=== PATIENT | male | born 1970 | race African-American/Black ===

== ENCOUNTER 2016-10-30 19:45 | Emergency (ER) | payer OTHER ==
[~2016-10-30] VITALS: Ht 188 cm; Wt 204.1 kg
[~2016-10-30 19:45] MED LIST: CIPROFLOXACIN500 M2 ORAL; IBUPROFEN600 MG ORAL; NKM; NORCO 10/3251 EA ORAL
--- NOTE | 2016-10-30 20:25 | Emergency Room Report ---
History of Present Illness General Chief Complaint: Animal Bite Source: Patient Present Illness HPI The patient presents with swelling in pain in the back of his neck. He said comes in his scalp in the past but never anything been like this before. It has been worsening over the last several days. Pain is 5/10, constant and worse with palpation, not radiating. Denies any fevers or chills. Last tetanus was 2 years ago. No URI sy, chest pain, dyspnea, NVD. Allergies: Coded Allergies: No Known Allergies (Unverified , 09/23/13) Patient History Past Medical History: see triage record, HTN Pertinent Family History: other - Mom worked here 29 years Social History: Denies: smoking Social History Narrative at home - disabled Reviewed Nursing Documentation: PMH: Agreed, PSxH: Agreed Nursing Documentation-PMH Hx Cardiac Problems: No - Bilateral Cornea transplant Hx Neurological Problems: No - KIDNEY STONES Review of Systems All Other Systems: negative except mentioned in HPI Physical Exam Vital Signs Date Time Temp Pulse Resp B/P Pulse Ox O2 Delivery O2 Flow Rate FiO2 10/30/16 20:05 99.1 98 16 151/100 100 Room Air Sp02 EP Interpretation: reviewed, normal General Appearance: well appearing, no apparent distress, obese Head: normocephalic, atraumatic Eyes: bilateral eye PERRL, bilateral eye normal inspection ENT: hearing grossly normal, normal voice, moist mucus membranes Neck: full range of motion, supple, tender - mid upper neck with swelling Respiratory: no respiratory distress, speaking full sentences Cardiovascular #1: regular rate, rhythm Cardiovascular #2: 2+ radial (L) Gastrointestinal: overweight Musculoskeletal: back normal, digits/nails normal, normal range of motion Neurologic: alert, oriented x3, normal gait, grossly normal Psychiatric: mood/affect normal Skin: other - abscess base of head - folliculitis around area, no erythema Procedures Incision and Drainage Incision and Drainage : Consent: Verbal Blade Size: 11 I & D Procedure: betadine prep, sterile drapes applied, sterile dressing applied, gauze wick placed Wound Location: neck Wound's Depth, Shape: other - deep subcutaneous tissue Wound Explored: contaminated - pus obtained - significant amount Irrigated w/ Saline (ccs): 20 Anesthesia: 1% Lidocaine Volume Anesthetic (ccs): 3 Patient Tolerated: Well Complications: None Medical Decision Making Diagnostic Impression: Primary Impression: Neck abscess ER Course Patient presents with a neck abscess. This needs to have I and D and also antibiotics. Tolerated I and D well. Discussed need for drain removal and further care and recheck. Patient stable for outpatient observation and treatment Chest X-Ray Diagnostic Results Chest X-Ray Ordered: No Last Vital Signs Date Time Temp Pulse Resp B/P Pulse Ox O2 Delivery O2 Flow Rate FiO2 10/30/16 21:23 99.1 16 151/100 100 Room Air 10/30/16 20:05 98 Status: improved Disposition: HOME, SELF-CARE Condition: Improved Scripts Tramadol Hcl* (ULTRAM*) 50 Mg Tablet 50 MG ORAL Q6H Y for For Pain, #10 TAB 0 Refills Prov: Jaskaran Hughes M.D. 10/30/16 Ibuprofen* (MOTRIN*) 600 Mg Tablet 600 MG ORAL Q6H Y for For Pain, #16 TAB Prov: Jaskaran Hughes M.D. 10/30/16 Bacitracin (Bacitracin) 28.4 Gm Oint...g. 1 APPLIC TOPIC BID, #10 GM 1 Refill Prov: Jaskaran Hughes M.D. 10/30/16 Trimethoprim/Sulfamethoxazole 160/800* (BACTRIM DS TABLET*) 1 Each Tablet 1 TAB ORAL Q12H, #14 TAB 0 Refills Prov: Jaskaran Hughes M.D. 10/30/16 Jaskaran Hughes M.D. Oct 30, 2016 20:25
[2016-10-30] MEDS ORDERED: Bactrim DS (160mg/800mg) tab ORAL ONE (20:30)
[2016-10-30] MEDS ORDERED: Lidocaine 1% MPF 10mg/ml 5ml INJ ONE (20:30)
[2016-10-30] MEDS ORDERED: BACTRIM DS TAB1 EAC1 ORAL (21:05)
[2016-10-30] MEDS ORDERED: IBUPROFEN600 MG ORAL (21:05)
[2016-10-30] MEDS ORDERED: TRAMADOL HCL50 MG ORAL (21:05)
[2016-10-30] MEDS ORDERED: BACITRACIN15 GM TOPIC (21:05)
[2016-10-30 21:23] VITALS: BP 151/100
== END 2016-10-30 21:33 | disposition home or self-care (01) ==
LOC: EMR 21:27
DX: L02.11 Cutaneous abscess of neck (principal); I10 Essential (primary) hypertension
CPT/HCPCS: 10060

== ENCOUNTER 2016-11-01 14:57 | Emergency (ER) | payer OTHER ==
[~2016-11-01] VITALS: Ht 182.9 cm; Wt 198.7 kg
[~2016-11-01 14:57] MED LIST changes: +BACITRACIN15 GM TOPIC; +BACTRIM DS TAB1 EAC1 ORAL; +TRAMADOL HCL50 MG ORAL
[2016-11-01 15:27] VITALS: BP 157/102
--- NOTE | 2016-11-01 15:57 | Emergency Room Report ---
History of Present Illness General Chief Complaint: Wound Recheck/Suture Removal Source: Patient Present Illness HPI 45 y/o male c/o repacking of abscess. States he had I&D performed on 6916. States wound is healing well. States he has not picked up his abx due to pharmacy being closed before he could get there. States overall wound is doing better and packing remains intact. Allergies: Coded Allergies: No Known Allergies (Unverified , 09/23/13) Patient History Past Medical History: see triage record Past Surgical History: none Pertinent Family History: none Reviewed Nursing Documentation: PMH: Agreed, PSxH: Agreed Nursing Documentation-PMH Past Medical History: No Stated History Hx Cardiac Problems: No - Bilateral Cornea transplant Hx Neurological Problems: No - KIDNEY STONES Review of Systems All Other Systems: negative except mentioned in HPI Physical Exam Vital Signs Date Time Temp Pulse Resp B/P Pulse Ox O2 Delivery O2 Flow Rate FiO2 11/01/16 15:06 97.0 95 20 157/129 99 Room Air Sp02 EP Interpretation: reviewed, normal General Appearance: no apparent distress, alert, GCS 15, non-toxic Head: normocephalic, atraumatic Eyes: bilateral eye normal inspection ENT: normal ENT inspection Neck: normal inspection Respiratory: chest non-tender, lungs clear, normal breath sounds, speaking full sentences Cardiovascular #1: regular rate, rhythm, no edema Musculoskeletal: gait/station normal Neurologic: alert, oriented x3, responsive, motor strength/tone normal, sensory intact, speech normal Psychiatric: judgement/insight normal, memory normal, mood/affect normal, no suicidal/homicidal ideation Skin: normal color, warm/dry, well hydrated, other - abscess on posterior scalp is swollen and indurated. No drainage present. Removed packing from abscess. Lymphatic: no adenopathy Procedures Additional Procedure Procedure Narrative Removed previous packing. Approx 3cm of packing was removed. Approx 3cm of 1/4" packing w/ iodoform was placed. Patient tolerated procedure well. The wound was then covered with telfa and tape. Medical Decision Making PA Attestation Dr. Acevedo is my supervising physician with whom patient management has been discussed with. Diagnostic Impression: Primary Impression: Encounter for wound re-check Additional Impressions: Abscess Elevated blood pressure reading ER Course Pt. presents to the ED c/o rrepack abscess Ddx considered but are not limited to dermatitis, insect sting, viral exanthem, herpez zoster, cellulitis, abscess Vital signs: are WNL, pt. is afebrile H&PE are most consistent with abscess with elevated BP reading. ORDERS: none required at this time, the diagnosis is clinical ED INTERVENTIONS: Repack abscess DISCHARGE: At this time pt. is stable for d/c to home. Will provide printed patient care instructions, and any necessary prescriptions. Care plan and follow up instructions have been discussed with the patient prior to discharge. Chest X-Ray Diagnostic Results Chest X-Ray Ordered: No Last Vital Signs Date Time Temp Pulse Resp B/P Pulse Ox O2 Delivery O2 Flow Rate FiO2 11/01/16 15:27 97.0 95 20 157/102 99 Room Air Status: improved Disposition: HOME, SELF-CARE Condition: Stable Patient Instructions: Wound Check Additional Instructions: Take medication as directed. Patient instructed to take ibuprofen and tylenol as needed for pain. Patient to return for wound check in 2-3 days either here, urgent care or with PCP. Advised patient to keep site of infection elevated above the level of their heart 3 or 4 times a day, for 30 minutes each time to help reduce swelling. Patient is to keep the infected area clean and dry. They can take a shower or bath, but be sure to pat the area dry with a towel afterward. Patient instructed to not put any antibiotic ointments or creams on the area. Patient should come back sooner if their symptoms do not get better within 3 days of starting treatment or if the red area gets bigger, more swollen , or more painful. Your blood pressure is elevated today. Having high blood pressure can lead to heart attacks, strokes and even . Hypertension is known as a silent killer because it may or may not cause symptoms. You are advised to monitor your blood pressure, limit sodium, caffeine and stress. Limit fast foods and soups as they have high levels of sodium. Drink tea or decaf coffee if you need to have caffeinated beverage, but limit it to only 1 cup. You also are encouraged to exercise and lose weight as it will help decrease blood pressure. If you experience chest pain, shortness or breath, dizziness or severe headache go to the nearest ER or call 911. JANIE GARCIA Nov 01, 2016 15:57
[2016-11-01 16:16] VITALS: BP 157/102
== END 2016-11-01 16:19 | disposition home or self-care (01) ==
LOC: EMR 15:12
DX: L02.811 Cutaneous abscess of head [any part, except face] (principal); R03.0 Elevated blood-pressure reading, without diagnosis of hypertension; Z87.442 Personal history of urinary calculi; Z94.7 Corneal transplant status
CPT/HCPCS: 99283

== ENCOUNTER 2018-10-08 16:16 | Emergency (ER) | payer OTHER ==
[~2018-10-08] VITALS: Ht 182.9 cm; Wt 148.8 kg
[2018-10-08 16:26] VITALS: BP 168/91
--- NOTE | 2018-10-08 16:29 | NUR ---
ED Nurse Note:pt. came with head injury from fall today, he has bump on left upper bam, skin is intact, A/Ox4 ambulatirng with steady gait, no dizziness
--- NOTE | 2018-10-08 16:45 | Emergency Room Report ---
History of Present Illness General Chief Complaint: Multiple Trauma/Fall Source: Patient, Medical Record Present Illness HPI Patient persist with complaints of head injury to the left top parietal region Reports that he was walking and did not realize the ground was wet He slipped hitting the side of his head on a freezer Denies any lapse of consciousness however reports that he was 'shaken' Denies any visual change he did have some increased nausea Denies any neck pain or photophobia denies any focal weakness Allergies: Coded Allergies: No Known Allergies (Unverified , 09/23/13) Patient History Past Medical History: see triage record Pertinent Family History: none Reviewed Nursing Documentation: PMH: Agreed; PSxH: Agreed Nursing Documentation-PMH Past Medical History: No History, Except For Hx Cardiac Problems: No - Bilateral Cornea transplant Hx Neurological Problems: No - KIDNEY STONES Review of Systems All Other Systems: negative except mentioned in HPI Physical Exam Vital Signs Date Time Temp Pulse Resp B/P (MAP) Pulse Ox O2 Delivery O2 Flow Rate FiO2 10/08/18 16:21 98.1 60 16 97 Room Air 10/08/18 16:26 168/91 Sp02 EP Interpretation: reviewed, normal General Appearance: well appearing, no apparent distress Head: other - 2 x 2 centimeter hematoma left top parietal region non-expanding Eyes: bilateral eye PERRL, bilateral eye EOMI ENT: hearing grossly normal, normal pharynx, TMs + canals normal, uvula midline Neck: full range of motion, supple, no meningismus, no bony tend Respiratory: lungs clear, normal breath sounds, no rhonchi, no respiratory distress, no retraction, no accessory muscle use Cardiovascular #1: normal peripheral pulses, regular rate, rhythm, no edema, no gallop, no JVD, no murmur Gastrointestinal: normal bowel sounds, non tender, soft, no mass, no organomegaly, non-distended, no guarding, no hernia, no pulsatile mass, no rebound Genitourinary: no CVA tenderness Neurologic: oriented x3, responsive, field laborer III-XII nml as tested, motor strength/ tone normal, sensory intact Psychiatric: mood/affect normal Skin: normal color, no rash, warm/dry, palpation normal Lymphatic: normal inspection, no adenopathy Medical Decision Making Diagnostic Impression: Primary Impression: Head injury ER Course Given the size of the hematoma and the patient's complaints imaging was obtained no obvious acute pathology is seen patient remains neurologically intact hemodynamically appropriate and will have close outpatient follow-up CT/MRI/US Diagnostic Results CT/MRI/US Diagnostic Results : Impression CT head:no acute disease Last Vital Signs Date Time Temp Pulse Resp B/P (MAP) Pulse Ox O2 Delivery O2 Flow Rate FiO2 10/08/18 16:26 98.1 60 16 168/91 97 Room Air Status: improved Disposition: HOME, SELF-CARE Condition: Improved Additional Instructions: Patient is provided with the discharge instructions notified to follow up with primary doctor in the next 2-3 days otherwise return to the er with any worsening symptoms. Please note that this report is being documented using Let technology. This can lead to erroneous entry secondary to incorrect interpretation by the dictating instrument. Johnnie aKsper DO October 08, 2018 16:45
--- NOTE | 2018-10-08 17:30 | NUR ---
ER DISCHARGE NOTE:ice placed to affected area Patient is cleared to be discharged per ERMD, pt is aox4, on room air, with stable vital signs. pt was given dc and prescription instructions, pt was able to verbalize understanding, pt is able to ambulate with steady gait. pt took all belongings.
[2018-10-08 17:36] VITALS: BP 168/91
--- NOTE | 2018-10-09 10:07 | Diagnostic Imaging Report ---
Indication: Headache Technique: Contiguous 5 mm thick transaxial imaging of the head obtained in a Siemens Sensation [address] scanner. Soft tissue and bone windows generated. Automatic Exposure Control was utilized. Total Dose length Product (DLP): 1344.[address] Dose Index Volume (CTDIvol): 70.38 mGy Comparison: none Findings: The size and configuration of the cortical sulci, basal cisterns, and ventricles are within normal limits for age. There is no mass effect, midline shift, or edema identified. There is no evidence of acute hemorrhage or abnormal intra-axial or extra-axial fluid collections. The bones and soft tissues are unremarkable. Impression: No mass effect, edema or acute bleed. [facility] has communicated the preliminary results to the Emergency Department. Their findings are largely concordant with this report. The CT scanner at [facility] is accredited by the [employer] and the scans are performed using dose optimization techniques as appropriate to a performed exam including Automatic Exposure control.
== END 2018-10-08 17:38 | disposition home or self-care (01) ==
LOC: EMR 16:43
DX: S09.90XA Unspecified injury of head, initial encounter (principal); W01.10XA Fall on same level from slipping, tripping and stumbling with subsequent striking against unspecified object, initial encounter; Y92.9 Unspecified place or not applicable; Z87.442 Personal history of urinary calculi
CPT/HCPCS: 70450; 99284

== ENCOUNTER 2019-07-04 01:16 | Emergency (ER) | payer OTHER ==
[~2019-07-04] VITALS: Ht 182.9 cm; Wt 99.8 kg
[2019-07-04 01:33] VITALS: BP 126/75
--- NOTE | 2019-07-04 01:36 | NUR ---
ED Nurse Note: Patient walked in to ER c/o palpitation. Stated was watching TV when fell fast heart beat. Patient presented calm, cooperative, AAO x4, VSS at thi time, pt's HR 68 at triage.
--- NOTE | 2019-07-04 01:48 | Emergency Room Report ---
History of Present Illness General Chief Complaint: Palpitations Source: Patient Present Illness HPI Disclaimer: Please note that this report is being documented using [employer]ON technology. This can lead to erroneous entry secondary to incorrect interpretation by the dictating instrument. HPI: 48-year-old male presents for evaluation of palpitations. Patient was doing laundry at home approximately 1 hour ago when he felt his heart either skip a beat or beat rapidly for several beats. It happened twice but each lasted only several seconds. Denied pain, shortness of breath, lightheadedness or any other changes during these episodes. Has not occurred since. No prior history of cardiac disease. Has not felt palpitations or skipped beats in the past. Denies any recent travel. Denied cough, fever, chills, URI symptoms, abdominal pain, vomiting, diarrhea. Otherwise in his usual state of health. He currently has no complaints. Wanted to get checked out to make sure everything was all right. PMH: Obesity, hypertension PSH: Bariatric surgery Allergies: Denies Social Hx: Occasional THC, denies tobacco Allergies: Coded Allergies: No Known Allergies (Unverified , 09/23/13) Nursing Documentation-PMH Past Medical History: No Stated History Hx Cardiac Problems: No - Bilateral Cornea transplant Hx Neurological Problems: No - KIDNEY STONES Review of Systems All Other Systems: negative except mentioned in HPI Physical Exam Vital Signs Date Time Temp Pulse Resp B/P (MAP) Pulse Ox O2 Delivery O2 Flow Rate FiO2 07/04/19 01:22 98.1 65 18 126/75 (92) 98 Room Air General: Awake and alert, no acute distress HEENT: NC/AT. EOMI. Neck: Supple, trachea midline Chest Wall: No tenderness, no deformity Cardiovascular: RRR. S1 and S2 normal. No murmur appreciated Resp: Normal work of breathing. No cough, wheezing or crackles appreciated Abdomen: Abdomen is soft, nondistended, obese abdomen. Nontender Skin: Intact. No abrasions, laceration or rash over the exposed skin MSK: Normal tone and bulk. Moving all extremities. No obvious deformity. Neuro: Awake and alert. Mentating appropriately. Medical Decision Making Diagnostic Impression: Primary Impression: Palpitation ER Course Well-appearing male presents for evaluation of brief heart palpitations earlier today. Differential includes was not limited to nonspecific palpitations, arrhythmia, ACS, musculoskeletal chest wall discomfort, GERD, esophageal spasm, bronchospasm, intercostal spasm, nonspecific chest pain. Start metabolic work- up though with little first assistant manager concern for significant disease at this time. He is comfortable and requires no interventions currently. Laboratory Tests Test 07/04/19 01:47 White Blood Count 7.3 K/UL (4.8-10.8) Red Blood Count 4.66 M/UL (4.70-6.10) L Hemoglobin 12.4 G/DL (14.2-18.0) L Hematocrit 38.1 % (42.0-52.0) L Mean Corpuscular Volume 82 FL (80-99) Mean Corpuscular Hemoglobin 26.6 PG (27.0-31.0) L Mean Corpuscular Hemoglobin Concent 32.6 G/DL (32.0-36.0) Red Cell Distribution Width 13.5 % (11.6-14.8) Platelet Count 214 K/UL (150-450) Mean Platelet Volume 7.5 FL (6.5-10.1) Neutrophils (%) (Auto) 44.6 % (45.0-75.0) L Lymphocytes (%) (Auto) 42.1 % (20.0-45.0) Monocytes (%) (Auto) 9.9 % (1.0-10.0) Eosinophils (%) (Auto) 1.6 % (0.0-3.0) Basophils (%) (Auto) 1.7 % (0.0-2.0) Sodium Level 144 MMOL/L (136-145) Potassium Level 4.5 MMOL/L (3.5-5.1) Chloride Level 108 MMOL/L (98-107) H Carbon Dioxide Level 31 MMOL/L (21-32) Anion Gap 6 mmol/L (5-15) Blood Urea Nitrogen 17 mg/dL (7-18) Creatinine 1.1 MG/DL (0.55-1.30) Estimate Glomerular Filtration Rate > 60 mL/min (>60) Glucose Level 87 MG/DL (74-106) Calcium Level 9.1 MG/DL (8.5-10.1) Total Bilirubin 0.5 MG/DL (0.2-1.0) Aspartate Amino Transferase (AST) 14 U/L (15-37) L Alanine Aminotransferase (ALT) 26 U/L (12-78) Alkaline Phosphatase 71 U/L (46-116) Troponin I 0.007 ng/mL (0.000-0.056) Total Protein 8.2 G/DL (6.4-8.2) Albumin 3.8 G/DL (3.4-5.0) Globulin 4.4 g/dL Albumin/Globulin Ratio 0.9 (1.0-2.7) L EKG Diagnostic Results EKG Time: 01:51 Rate: bradycardiac Rhythm: NSR ST Segments: no acute changes Other Impression Sinus rhythm, normal axis, normal intervals, no ST segment changes. Rhythm Strip Diag. Results Rhythm Strip Time: 01:51 EP Interpretation: yes Rate: 55 Rhythm: NSR, no PVC's, no ectopy Reevaluation Time: 03:07 Last Vital Signs Date Time Temp Pulse Resp B/P (MAP) Pulse Ox O2 Delivery O2 Flow Rate FiO2 07/04/19 01:33 98.1 68 18 126/75 98 Room Air Reevaluation Impression Labs, EKG. The patient remained symptom-free. He feels reassured by these results and will follow up with his PMD. Do not believe he requires further work-up at this time in inpatient setting. He can follow-up with his PMD as needed. Discussed reasons to return to the emergency department. He understands and agrees treatment plan Disposition: HOME, SELF-CARE Condition: Stable Saleem Humphrey MD Jul 04, 2019 01:48
[2019-07-04 02:13] LABS: BASOPHILS % (AUTO) 1.7 % (0.0-2.0); EOSINOPHILS % (AUTO) 1.6 % (0.0-3.0); HEMATOCRIT 38.1 % (42.0-52.0); HEMOGLOBIN 12.4 G/DL (14.2-18.0); LYMPHOCYTES % (AUTO) 42.1 % (20.0-45.0); MEAN CORPUSCULAR VOLUME 82 FL (80-99); MONOCYTES % (AUTO) 9.9 % (1.0-10.0); NEUTROPHILS % (AUTO) 44.6 % (45.0-75.0); PLATELET COUNT 214 K/UL (150-450); RED BLOOD COUNT 4.66 M/UL (4.70-6.10); RED CELL DISTRIBUTION WIDTH 13.5 % (11.6-14.8); WHITE BLOOD COUNT 7.3 K/UL (4.8-10.8)
[2019-07-04 02:22] LABS: ANION GAP 6 mmol/L (5-15); BLOOD UREA NITROGEN 17 mg/dL (7-18); CALCIUM 9.1 MG/DL (8.5-10.1); CARBON DIOXIDE 31 MMOL/L (21-32); CHLORIDE 108 MMOL/L (98-107); CREATININE 1.1 MG/DL (0.55-1.30); POTASSIUM 4.5 MMOL/L (3.5-5.1); SODIUM 144 MMOL/L (136-145)
[2019-07-04 02:26] LABS: ALANINE AMINOTRANSFERASE 26 U/L (12-78); ALBUMIN 3.8 G/DL (3.4-5.0); ALBUMIN/GLOBULIN RATIO 0.9 (1.0-2.7); ALKALINE PHOSPHATASE 71 U/L (46-116); ASPARTATE AMINO TRANSFERASE 14 U/L (15-37); BILIRUBIN,TOTAL 0.5 MG/DL (0.2-1.0)
[2019-07-04 03:05] VITALS: BP 126/75
--- NOTE | 2019-07-04 03:05 | NUR ---
ER DISCHARGE NOTE: Patient is cleared to be discharged per ERMD, pt is aox4, on room air, with stable vital signs. pt was given dc and prescription instructions, pt was able to verbalize understanding, pt id band and iv site removed without complications. pt is able to ambulate with steady gait. pt took all belongings.
== END 2019-07-04 03:05 | disposition home or self-care (01) ==
LOC: EMR 02:10
DX: R00.2 Palpitations (principal); I10 Essential (primary) hypertension; Z87.442 Personal history of urinary calculi; Z98.84 Bariatric surgery status; R00.1 Bradycardia, unspecified
CPT/HCPCS: 36415; 80053; 84484; 85025; 93005; 99283